=== PATIENT | female | born 1965 | race Caucasian/White ===

== ENCOUNTER 2016-09-20 12:23 | Emergency (ER) | payer OTHER ==
[~2016-09-20 12:23] MED LIST: ALLERCLEAR10 MG PO; COZAAR50 MG PO; ELAVIL 25 MG TA25 MG PO; JANUVIA50 MG PO; NORCO 5-325 TA1 EACH PO; NORVASC 5 MG TAB5 MG PO; SIMVASTATIN20 MG PO; TRIAMTERENE-HC1 EAC1 PO
[2016-09-20 13:22] LABS: HEMOGLOBIN 14.1 gm/dl (12.3-15.3); RED BLOOD COUNT 5.22 M/UL (4.00-5.10); WHITE BLOOD COUNT 9.8 K/UL (4.5-11.0)
[2016-09-20 14:43] LABS: BUN/CREATININE RATIO 12 (0-10)
== END 2016-09-20 18:43 | disposition short-term general hospital (02) ==
LOC: ER1 12:23
PROVIDERS: Emergency Medicine
DX: K46.0 Unspecified abdominal hernia with obstruction, without gangrene (principal); I10 Essential (primary) hypertension; E78.5 Hyperlipidemia, unspecified; Z79.899 Other long term (current) drug therapy; N39.0 Urinary tract infection, site not specified
CPT/HCPCS: 36415; 80053; 81001; 82150; 83690; 84703; 85025; 87086; 96374; 96375; 96376; 99285; J1335; J2270; J2405; J7050; Q9962

== ENCOUNTER → 2021-02-17 | Outpatient (CLI) | payer OTHER ==
[~2021-02-17] MED LIST changes: +CIPRO500 MG PO; +CLINDAMYCIN HC150 MG PO; +HYDROCODON-ACE1 EAC4 PO
== END ==
LOC: SLEEP 10:32
DX: R53.83 Other fatigue (principal); I42.0 Dilated cardiomyopathy; G47.33 Obstructive sleep apnea (adult) (pediatric); I49.3 Ventricular premature depolarization; I11.0 Hypertensive heart disease with heart failure; I50.9 Heart failure, unspecified; E78.5 Hyperlipidemia, unspecified; G47.00 Insomnia, unspecified; D51.9 Vitamin B12 deficiency anemia, unspecified; E11.40 Type 2 diabetes mellitus with diabetic neuropathy, unspecified; Z79.899 Other long term (current) drug therapy
CPT/HCPCS: 95810